=== PATIENT | male | born 1960 | race Caucasian/White ===

== ENCOUNTER 2016-06-20 19:25 | Emergency (ER) | payer SELFPAY ==
[~2016-06-20] VITALS: Ht 170.2 cm; Wt 83.6 kg
[~2016-06-20 19:25] MED LIST: BETH25TA PO; CIPR-280 PO; TAMS-1 PO
--- OUTSIDE RECORDS SUMMARY | 2016-06-20 19:29 | XMS REPORT | Referral Summary ---
Author Author [facility] Organization [facility] Address Unknown Phone Unavailable Care Team Providers Care Product Marketing Engineer Name Role Phone ChristiemeekRadha Primary Care Physician [phone] Encounter Date(s): 01/24/15 - 01/24/15 [facility] [address] [place] [address] [place] [address] Discharge Disposition: 01-Home or Self Care Attending Physician: Tony Eid JR, MD Admitting Physician: Tony Eid JR, MD Vital Signs No data available for this section Problem List Condition Effective Dates Status Health Status Informant No Chronic Problems Active Obesity(Confirmed) Active patient Allergies, Adverse Reactions, Alerts No Known Allergies Medications Flomax mg, Oral, Daily, 0 Refill(s) Start Date: 01/20/15 Status: Ordered Results No data available for this section Immunizations No data available for this section Procedures Procedure Date Related Diagnosis Body Site None Social History Social History Type Response Smoking Status Current every day smoker; Type: Cigarettes; Tobacco use per day: Pack Assessment and Plan Extracted from: Title: Catheter removal Author: Josse Sexton RN Date: 01/24/15 Patient arrived to have his indwelling catheter removed. Balloon deflated, catheter removed, standard instructions given to patient.
--- OUTSIDE RECORDS SUMMARY | 2016-06-20 19:29 | XMS REPORT | Referral Summary ---
Author Author [facility] Organization [facility] Address Unknown Phone Unavailable Care Team Providers Care Satellite Project Site Monitor Name Role Phone Radha Cunningham Primary Care Physician [phone] Encounter VC Date(s): 01/30/15 - 01/30/15 [facility] [address] [place] [address] [place], [place] [address] Discharge Diagnosis: Acute urinary retention Discharge Disposition: 01-Home or Self Care Attending Physician: Tony Eid JR, MD Admitting Physician: Tony Eid JR, MD Referring Physician: Ludin Cunningham MD Vital Signs Most recent to 1 oldest [Reference Range]: Peripheral Pulse 100 bpm Rate [60-100 bpm] (01/30/15 2:34 PM) Blood Pressure 132/80 mmHg [90-140/60-90 mmHg] (01/30/15 2:34 PM) Problem List Condition Effective Dates Status Health Status Informant No Chronic Problems Active Obesity(Confirmed) Active patient Allergies, Adverse Reactions, Alerts No Known Allergies Medications antibiotic, possibly cipro antibiotic, possibly cipro, 0 Refill(s) Start Date: 01/20/15 Status: Ordered Flomax mg, Oral, Daily, 0 Refill(s) Start Date: 01/20/15 Status: Ordered Results No data available for this section Immunizations No data available for this section Procedures Procedure Date Related Diagnosis Body Site None Social History Social History Type Response Smoking Status Current every day smoker; Type: Cigarettes; Tobacco use per day: Pack Assessment and Plan Extracted from: Title: Ambulatory Patient Education Author: Tony Eid JR, MD Date : 01/30/15 Follow Up With: Where: When: Ludin Cunningham [address] [place] [address] Business (1) Within 3 to 5 days Comments: Follow Up With: Where: When: Tony Eid [address] [place] [address] Drive; Via [facility] [place] [address] Business (1) In 2 weeks 02/13/2015 Comments: Extracted from: Title: Office Visit Note Author: Tony Eid JR, MD Date: 01/30/15 Assessment/Plan Acute urinary retention Will remove Young catheter today and start trial of voiding. Continue tamsulosin. If not able to urinate go to the emergency room so that the Young catheter will be inserted and this time leave the Young catheter for 2 weeks before removing it. This patient will subsequently need to have cystoscopyof whyhe gets this acute urinary retention. If he is able to urinate I would like to see him again in 2 weeks Ordered: Office Visit Level 3 Est [address]
--- OUTSIDE RECORDS SUMMARY | 2016-06-20 19:29 | XMS REPORT | Referral Summary ---
Author Author [facility] Organization [facility] Address Unknown Phone Unavailable Care Team Providers Care Outside Sales Professional Name Role Phone Radha Cunningham Primary Care Physician [phone] Encounter Date(s): 02/07/15 - 02/07/15 [facility] [address] [place] [address] [place] [id number] Discharge Disposition: 01-Home or Self Care Attending Physician: Tony Eid JR, MD Admitting Physician: Tony Eid JR, MD Referring Physician: Ludin Cunningham MD Vital Signs No data available for this section Problem List Condition Effective Dates Status Health Status Informant No Chronic Problems Active Obesity(Confirmed) Active patient Allergies, Adverse Reactions, Alerts No Known Allergies Medications bethanechol 25 mg oral tablet 25 mg 1 tabs, Oral, QID, X 2 weeks, # 56 tabs, 0 Refill(s), Pharmacy: [facility], 1 tabs Oral QID,x2 weeks Start Date: 01/31/15 Stop Date: 02/14/15 Status: Ordered Cipro 500 mg oral tablet 500 mg 1 tabs, Oral, q12hr, X 2 weeks, # 28 tabs, 0 Refill(s), Pharmacy: [facility], 1 tabs Oral q12hr,x2 weeks Start Date: 01/31/15 Stop Date: 02/14/15 Status: Ordered Flomax mg, Oral, Daily, 0 Refill(s) Start Date: 01/20/15 Status: Ordered Results No data available for this section Immunizations No data available for this section Procedures Procedure Date Related Diagnosis Body Site None Social History Social History Type Response Smoking Status Current every day smoker; Type: Cigarettes; Tobacco use per day: Pack Assessment and Plan Extracted from: Title: cath removal Author: Josse Sexton RN Date: 02/07/15 Patient arrived to have his indwelling catheter removed. Balloon deflated, catheter removed. Patient given instructions about returning around2:00PM today if unable to void. Pt verbalized understanding.
--- OUTSIDE RECORDS SUMMARY | 2016-06-20 19:29 | XMS REPORT | Referral Summary ---
Author Author [facility] Organization [facility] Address Unknown Phone Unavailable Care Team Providers Care Parking Lot Supervisor Name Role Phone Radha Cunningham Primary Care Physician [phone] Encounter VC Date(s): 01/30/15 - 01/30/15 [facility] [address] [place] [address] [place] [id number] Discharge Diagnosis: Acute urinary retention [...] Where: When: Ludin Cunningham [address] [place] [address] Business (1) Within 3 to 5 days Comments: Follow Up With: Where: When: Tony Eid [address] [place] [address] Drive; Via [place] [address] Business (1) In 2 weeks 02/13/2015 Comments: [...] weeks Ordered: Office Visit Level 3 Est 91328
--- OUTSIDE RECORDS SUMMARY | 2016-06-20 19:29 | XMS REPORT | Referral Summary ---
Author Author [facility] Organization [facility] Address Unknown Phone Unavailable Care Team Providers Care Head Orthopedic Team Physician Name Role Phone Radha Cunningham Primary Care Physician [phone] Encounter Date(s): 01/20/15 - 01/20/15 [facility] [address] [place] [address] [place] [id number] Discharge Diagnosis: Acute urinary retention Discharge Diagnosis: Acute urinary retention Discharge Diagnosis: Cigarette smoker Discharge Disposition: 01-Home or Self Care Attending Physician: Tony Eid JR, MD Admitting Physician: Tony Eid JR, MD Referring Physician: Tony Eid JR, MD Vital Signs Most recent to 1 oldest [Reference Range]: Peripheral Pulse 89 bpm Rate [60-100 bpm] (01/20/15 3:18 PM) Blood Pressure 126/80 mmHg [90-140/60-90 mmHg] (01/20/15 3:18 PM) Problem List Condition Effective Dates Status [...] Author: Tony Eid JR, MD Date : 01/20/15 Follow Up With: Where: When: Ludin Cunningham [address] [place] [address] Business (1) Within 3 to 5 days Comments: Follow Up With: Where: When: Tony Eid [address] [place] [address] Drive; [place] [address] Business (1) In 2 weeks 02/03/2015 Comments: Extracted from: Title: Office Visit Note Author: Tony Eid JR, MD Date: 01/20/15 Assessment/Plan 1.Acute urinary retention, Acute urinary retention we leave Young catheter until Tuesday, will not remove Young catheter by then. Continue tamsulosin and antibiotics. Ordered: Office Visit Level 4 [facility] [address] 2.Cigarette smoker patient advised to quit smoking and to talk to his family doctor with regards to help him quit smoking
--- OUTSIDE RECORDS SUMMARY | 2016-06-20 19:29 | XMS REPORT | Referral Summary ---
Author Author [facility] Organization [facility] Address Unknown Phone Unavailable Care Team Providers Care Scenario Writer Name Role Phone Radha Cunningham Primary Care Physician [phone] Encounter VC Date(s): 01/12/15 - 01/12/15 [facility] [address] [place] [address] Discharge Diagnosis: Acute UTI Final: Urinary tract infection, site not specified Discharge Disposition: 01-Home or Self Care Attending Physician: Petey Johnson MD Admitting Physician: Petey Johnson MD Vital Signs Most recent to 1 oldest [Reference Range]: Temperature Oral 36.8 degC [35.8-37.3 degC] (01/12/15 6:06 PM) Peripheral Pulse 89 bpm Rate [60-100 bpm] (01/12/15 6:06 PM) Respiratory Rate 20 br/min [14-20 br/min] (01/12/15 6:06 PM) Blood Pressure 141/88 mmHg [90-140/60-90 mmHg] *HI* (01/12/15 6:06 PM) SpO2 97 % (01/12/15 6:06 PM) Problem List Condition Effective Dates Status Health Status Informant No Chronic Problems Active Obesity(Confirmed) Active patient Allergies, Adverse Reactions, Alerts No Known Allergies Medications Flomax mg, Oral, Daily, 0 Refill(s) Start Date: 01/20/15 Status: Ordered Results Urinalysis Most recent to 1 oldest [Reference Range]: UA Color Lt Yellow (01/12/15 3:19 PM) UA Appear Clear (01/12/15 3:19 PM) UA pH [5.0-8.0] 5.0 (01/12/15 3:19 PM) UA Leuk Est Trace [Negative] *ABN* (01/12/15 3:19 PM) UA Nitrite Negative [Negative] (01/12/15 3:19 PM) UA Protein Negative [Negative] (01/12/15 3:19 PM) UA Glucose Negative [Negative] (01/12/15 3:19 PM) UA Ketones Pos 1+ [Negative] *ABN* (01/12/15 3:19 PM) UA Urobilinogen Negative [<1.0] (01/12/15 3:19 PM) UA Bili [Negative] Negative (01/12/15 3:19 PM) UA Blood [Negative] Negative (01/12/15 3:19 PM) UA Spec Grav 1.016 [1.003-1.030] (01/12/15 3:19 PM) Type Clean Catch (01/12/15 3:19 PM) UA WBC [0-4] 5-10 *ABN* (01/12/15 3:19 PM) Epithelial Cells 0-2 (01/12/15 3:19 PM) UA Bacteria Occasional *ABN* (01/12/15 3:19 PM) UA Mucous Present (01/12/15 3:19 PM) Immunizations No data available for this section Procedures Procedure Date Related Diagnosis Body Site None Social History Social History Type Response Smoking Status Current every day smoker; Type: Cigarettes; Tobacco use per day: Pack Assessment and Plan No data available for this section
--- OUTSIDE RECORDS SUMMARY | 2016-06-20 19:29 | XMS REPORT | Referral Summary ---
Author Author [facility] Organization [facility] Address Unknown Phone Unavailable Care Team Providers Care Operator Command Support Systems Name Role Phone No PCP, Pt States Primary Care Physician [phone] Encounter VC Date(s): 01/12/15 - 01/12/15 [facility] [address] [place] [address] Discharge Diagnosis: Acute UTI Discharge Disposition: 01-Home or Self Care Attending [...] 97 % (01/12/15 6:06 PM) Problem List No Known Problems Allergies, Adverse Reactions, Alerts No Known Allergies Medications Carafate 1 g oral tablet 1 tabs, Oral, QID, # 120 tabs, 0 Refill(s) Start Date: 03/18/14 Status: Ordered Macrobid 100 mg oral capsule 100 mg 1 caps, Oral, BID, X 7 days, # 14 caps, 0 Refill(s) Start Date: 01/12/15 Stop Date: 01/19/15 Status: Ordered phenazopyridine 100 mg oral tablet 100 mg 1 tabs, Oral, TID, X 3 days, # 9 tabs, 0 Refill(s) Start Date: 01/12/15 Stop Date: 01/15/15 Status: Ordered PriLOSEC 20 mg oral delayed release capsule 1 caps, Oral, Daily, before a meal, # 30 caps, 0 Refill(s) Start Date: 03/18/14 Status: Ordered Results Urinalysis Most recent to [...] No data available for this section Procedures No data available for this section Social History Social History Type Response Smoking Status Current every day smoker; Type: Cigarettes; Tobacco use per day: Pack Assessment and Plan No data available for this section
--- OUTSIDE RECORDS SUMMARY | 2016-06-20 19:29 | XMS REPORT | Referral Summary ---
Author Author [facility] Organization [facility] Address Unknown Phone Unavailable Care Team Providers Care Lidar Analyst Name Role Phone Christiemeek Radha Primary Care Physician [phone] Encounter Date(s): 01/31/15 - 01/31/15 [facility] [address] [place] [address] [place] [id number] Discharge Diagnosis: Hypotonic bladder Discharge Diagnosis: Acute urinary retention Discharge Diagnosis: Acute urinary retention Discharge Disposition: -Home or Self Care Attending Physician: Tony Eid [...] weeks, # 56 tabs, 0 Refill(s), Pharmacy: [facility], 1 tabs Oral QID,x2 weeks Start Date: 01/31/15 Stop Date: 02/14/15 Status: Ordered Cipro 500 mg oral tablet 500 mg 1 tabs, Oral, q12hr, X 2 weeks, # 28 tabs, 0 Refill(s), Pharmacy: [facility], 1 tabs Oral q12hr,x2 weeks Start [...] Author: Tony Eid JR, MD Date : 01/31/15 Follow Up With: Where: When: Ludin Cunningham [address] [place] [facility] [place] [address] Business (1) Within 3 to 5 days Comments: Follow Up With: Where: When: Tony Eid [address] [place] [address] Drive; [place] [address] Business (1) Within 3 to 5 days Comments: Extracted from: Title: Office Visit Note Author: Tony Eid JR, MD Date: 01/31/15 Assessment/Plan 1.Acute urinary retention, Acute urinary retention and number 16 Coude Young catheter was inserted. I was able to obtain a better cc of clear yellow urine. The graft the Young catheter was connected to a leg bag. Continue tamsulosin and Cipro. Ordered: Office Visit Level 4 Est 72525 2.Hypotonic bladder patient will be started on Urecholine, 4 times a day. Patient is scheduled for cystoscopy possible urethral dilatation this coming Tuesday. We'll plan to do also urethral dilatation and in will remove the Young catheter 3 or 4 days after the cystoscopy and urethral dilatation is done. Procedures, risks, complications, and follow-up explained to patient with verbalize full understanding. Orders: bethanechol, 25 mg 1 tabs, Oral, QID, X 2 weeks, # 56 tabs, 0 Refill(s ), Pharmacy: [facility], 1 tabs Oral QID,x2 weeks ciprofloxacin, 500 mg 1 tabs, Oral, q12hr, X 2 weeks, # 28 tabs, 0 Refill(s), Pharmacy: [facility], 1 tabs Oral q12hr,x2 weeks
--- OUTSIDE RECORDS SUMMARY | 2016-06-20 19:29 | XMS REPORT | Referral Summary ---
Author Author [facility] Organization [facility] Address Unknown Phone Unavailable Care Team Providers Care Director Of Labor And Delivery Name Role Phone Radha Cunningham Primary Care Physician [phone] Encounter VC Date(s): 01/31/15 - 01/31/15 [facility] [address] [place] [address] [place] [id number] Discharge Diagnosis: Hypotonic bladder Discharge Diagnosis: Acute [...] Procedures Procedure Date Related Diagnosis Body Site Insertion of temporary indwelling bladder 01/31/15 catheter; complicated (eg, altered anatomy, fractured catheter/balloon) None Social History Social History Type Response Smoking Status Current every day smoker; Type: Cigarettes; Tobacco use per day: Pack Assessment and Plan Extracted from: Title: Ambulatory Patient Education Author: Tony Eid JR, MD Date : 01/31/15 Follow Up With: Where: When: Ludin Cunningham [address] [place] [address] Business (3) Within 3 to 5 days Comments: Follow Up With: Where: When: Tony Eid [address] [place] [address] Drive; Via [facility] [place] [address] Business (1) Within 3 to 5 days [...] Cipro. Ordered: Office Visit Level 4 Est [address] 2.Hypotonic bladder patient will be started on [...] # 56 tabs, 0 Refill(s ), Pharmacy: [facility], 1 tabs Oral QID,x2 weeks ciprofloxacin, 500 mg 1 tabs, Oral, q12hr, X 2 weeks, # 28 tabs, 0 Refill(s), Pharmacy: [facility], 1 tabs Oral q12hr,x2 weeks
--- OUTSIDE RECORDS SUMMARY | 2016-06-20 19:29 | XMS REPORT | Referral Summary ---
Author Author [facility] Organization [facility] Address Unknown Phone Unavailable Care Team Providers Care Torts Law Professor Name Role Phone Marisa Radha Primary Care Physician [phone] Encounter Date(s): 01/24/15 - 01/24/15 [facility] [address] [place] [address] [place] [address] Discharge Disposition: 01-Home or Self Care Attending Physician: Tony Eid JR, MD Admitting Physician: Tony Eid JR, MD Vital Signs No data available for this section Problem List Condition Effective Dates Status Health Status Informant No Chronic Problems Active Obesity(Confirmed) Active patient Allergies, Adverse Reactions, Alerts No Known Allergies Medications antibiotic, possibly cipro antibiotic, possibly cipro, 0 Refill(s) Start Date: 01/20/15 Status: Ordered Carafate 1 g oral tablet 1 tabs, Oral, QID, # 120 tabs, 0 Refill(s) Start Date: 03/18/14 Status: Ordered Flomax mg, Oral, Daily, 0 Refill(s) Start Date: 01/20/15 Status: Ordered PriLOSEC 20 mg oral delayed release capsule 1 caps, Oral, Daily, before a meal, # 30 caps, 0 Refill(s) Start Date: 03/18/14 Status: Ordered Results No data available for [...]
--- OUTSIDE RECORDS SUMMARY | 2016-06-20 19:29 | XMS REPORT | Continuity of Care Document ---
Author Author [facility] Organization [facility] Address Unknown Phone Unavailable Allergies Active Description Code Type Severity Reaction Onset Reported/Identified Relationship to Patient Clinical Status Yes No Known Allergies NKMA N/A N/A 03/18/2014 Yes No Known Allergies NKMA N/A N/A 03/18/2014 Medications Problems Date Dx Coded Attending Type Code Diagnosis Diagnosed By 03/19/2014 Saeed Arenas DO Reason 786.50 UNSPECIFIED CHEST PAIN 01/21/2015 Final N39.0 Urinary tract infection, site not specified 01/21/2015 Reason R10.12 Left upper quadrant pain 01/21/2015 Reason R10.30 Lower abdominal pain, unspecified Procedures Results Encounters ACCT No. Visit Date/Time Discharge Status Pt. Type Provider Facility Loc./Unit Complaint [id number] 03/18/2014 18:34:00 2013 22:52:00 DIS Emergency Saeed Arenas DO [facility] ED cp [id number] 01/12/2015 15:04:00 Document Registration
--- OUTSIDE RECORDS SUMMARY | 2016-06-20 19:29 | XMS REPORT | Referral Summary ---
Author Author [facility] Organization [facility] Address Unknown Phone Unavailable Care Team Providers Care Applications Sales Representative Name Role Phone Radha Cunningham Primary Care Physician [phone] Encounter [facility] [id number] Date(s): 01/20/15 - 01/20/15 [facility] [address] [place] [address] [place] [address] Discharge Diagnosis: Acute urinary retention Discharge Diagnosis: [...] 01/20/15 Follow Up With: Where: When: Ludin Marisa [address] [place] [address] Business (1) Within 3 to 5 days Comments: Follow Up With: Where: When: Tony Eid [address] [place] [address] Drive; [place] [address] Business (1) In 2 weeks 02/03/2015 Comments: Extracted from: Title: Office Visit Note Author: Tony Eid JR, MD Date: 01/20/15 Assessment/Plan 1.Acute urinary retention, Acute urinary retention we leave Young catheter until Tuesday, will not remove Young catheter by then. Continue tamsulosin and antibiotics. Ordered: Office Visit Level 4 [place] [address] 2.Cigarette smoker patient advised to quit smoking and to talk to his family doctor with regards to help him quit smoking
[2016-06-20 19:36] VITALS: Ht 170.2 cm; Wt 83.6 kg
[2016-06-20] MEDS ORDERED: TAMSULOSIN 0.4 MG CAPSULE PO ONE (20:00)
[2016-06-20 20:04] LABS: BLOOD, URINE 1+ (NEGATIVE); COLOR,URINE YELLOW (YELLOW); LEUKOCYTE ESTERASE ,URINE NEGATIVE (NEGATIVE); NITRITE,URINE NEGATIVE (NEGATIVE); UROBILINOGEN,URINE 0.2 EU/DL (NORMAL)
--- NOTE | 2016-06-20 20:04 | ERPDOC ---
Departure Disposition Decision Date: Jun 20, 2016 Disposition Decision Time: 20:12 Disposition: 01 DISCHARGED HOME, SELF-CARE Impression Impression Impression: Primary Impression: Urinary retention Severity: Moderate Condition: Stable Seen By: Mid-level only Referrals: Samia CUNNINGHAM MD (Family) Patient Instructions: Urinary Retention in Men (ED) Problems/Meds/Labs Reviewed?: Yes Medications reviewed and manag: Yes Additional Instructions: Take the Flomax as prescribed. I do want you to call and schedule an appointment with Dr Cunningham this week or Dr Epps or urologist of your choice. Dr Epps's office number is [phone]. Dr Cunningham or the urologist can take out your boswell catheter and talk about further interventions to prevent the retention from happening again. If any other issues/concerns then return to Er. Follow up care ordered?: Yes Mental Status: Alert, Oriented Scripts Tamsulosin HCl (Flomax) 0.4 Mg Capsule 0.4 MG PO HS, #14 CAP 0 Refills Take 1 capsule, by mouth, one time a day at BEDTIME. Prov: STERLING PATINOChel Wiggins APRN 06/20/16 HPI - Male General Chief Complaint: Male Urogenital Problems Stated Complaint: UNABLE TO URINATE Time Seen by Provider: 19:51 Source: patient Exam Limitations: no limitations HPI - Male Initial Comments He has had trouble with urination since last evening. Has only been able to void a small amount at a time. Tonight was feeling very uncomfortable so came into Er. Bladder scan does show about 1000ml in the bladder. He has had this same thing happen about a year and a half ago. Had seen Dr Eid for this and had a procedure that he was told would fix it. Had been taking Flomax but the Rx ran out and he did not get it refilled. Denies any fever or chills. Occurred At: home Onset: Gradual Duration: 12-24 hrs Severity/Quality: fullness Location: unknown Radiation: none Prior Genitourinary Problems: none Associated Symptoms: abdominal pain (low abdominal pressure), DENIES: diaphoresis, dysuria, fever/chills, loss of bladder control, lower back pain, lumps, mass, nausea/vomiting, nocturia, polyuria, swelling, syncope, urinary frequency Allergies: Coded Allergies: No Known Allergies (Unverified , 06/20/16) Past History Past Medical History Pt denies signifigant PMH Male: other Surgical History Denies Surgeries Family History Family History: Negative Vaccines Hx Influenza Vaccination: No Hx Pneumococcal Vaccination: No Social History Smoking Status: Never smoker Substance Use Type: does not use Alcohol Intake: none Review of Systems Constitutional Constitutional: DENIES: chills, dizziness, fatigue, fever, weakness GI Upper Abdomen: DENIES: nausea, pain, vomiting Lower Abdomen: DENIES: constipation, diarrhea, pain Integumentary Skin: DENIES: rash Neurological General: DENIES: headache, numbness, tingling, weakness Physical Exam General General Nourishment: well nourished, well developed, appears stated age, no acute distress, adult General Body Habitus: well groomed Vitals and Pain First Documented Vital Signs Date Time Temp Pulse Resp B/P Pulse Ox O2 Delivery O2 Flow Rate FiO2 06/20/16 19:36 98.8 95 19 150/97 95 Room Air Weight: Kilograms: 83.600 Height (feet): 5 Height (inches): 7.00 Triage Pain Scale: RN VS reviewed by Provider: Yes Normal Exams: Neck: Full range of motion, without adenopathy, JVD, bruits or thyromegaly Chest/Resp: Clear all rey, with good airflow, and symmetry bilaterally CV: Regular rate and rhythm, without murmur or gallop, Pulses 2+ all extremities, capillary refill, <2 seconds all ext., no pedal edema noted Abdomen: Bowel sounds positive, soft, non-tender, non-distended, no hepatosplenomegaly, masses or bruits noted Lymphatic: No lymphadenopathy, or lymphedema noted Integumentary: No rashes, hives, or bruising noted Neurologic: Patient is alert, and oriented Psychiatric: Patient exhibits, appropriate attention, emotion and affect Differential Diagnoses Considering: Pyelonephritis, Urinary Retention, UTI Progress Results/Orders Orders Procedure Category Date Status Time Boswell (Ed) EDM 06/20/16 Transmitted 19:47 Catheter Needs TEJINDER 06/20/16 In Process Assessment 19:47 Bladder Scanner (Ed) EDM 06/20/16 Transmitted 19:47 Tamsulosin (Flomax PHA 06/20/16 Complete 0.4 Mg) 20:00 Ua, Dip Wreflex LAB 06/20/16 Logged [employer] Director 19:59 Boswell (Ed) EDM 06/20/16 Transmitted 19:59 Bladder Scanner (Ed) EDM 06/20/16 Transmitted 19:59 UA, LAB 06/20/16 Complete Dip&Micro(Complete) & 20:00 Case Management CONS 06/20/16 Transmitted Consult Lab Results Laboratory Tests Test 06/20/16 20:00 Urine Collection Type Cleancatch-midstream Urine Color Yellow Urine Turbidity Clear Urine pH 6.0 Urine Specific [place] 1.015 Urine Protein Negative Urine Glucose (UA) Negative Urine Ketones Negative Urine Blood 1+ Urine Nitrite Negative Urine Bilirubin Negative Urine Urobilinogen 0.2EU/DL Urine Leukocyte Esterase Negative Urine RBC 3-5/HPF Urine WBC None seen/HPF Urine Squamous Epithelial Cells None seen Urine Bacteria None seen Urine Culture Indicated Cult not indicated Medications Current ED Medications Tamsulosin HCl (FLOMAX 0.4 mg) 0.4 mg O ONCE PO Last administered on t 20:09; Start 06/20/16 at 20:00; Stop 06/20/16 at 20:01; Status DC Progress Progress Boswell catheter placed and over 1 liter of urine out. UA is clear of infection. Will send him home with boswell catheter. Did advise that he follow up with a urologist. He does not have health insurance and is going to try to get set up with urology this week or possibly Dr Cunningham his PCP. Will go ahead and have him start on Flomax. Has been on this in the past but ran out if his Rx. RAGINI PATINO APRN Jun 20, 2016 20:03
[2016-06-20] MEDS ORDERED: BETA PROSTATE PO (20:05)
[2016-06-20 20:13] LABS: WBC,URINE NONE SEEN /HPF (0-5)
[2016-06-20 20:14] LABS: BACTERIA,URINE NONE SEEN (NEGATIVE); SQUAMOUS EPITHELIAL CELL,UR NONE SEEN
[2016-06-20] MEDS ORDERED: TAMS-1 PO (20:24)
[2016-06-20 20:25] VITALS: BP 126/90; PULSE 85; RESP 16; TEMP 98.8; O2SAT 95
--- NOTE | 2016-06-20 20:30 | NUR ---
CATHETER EDUCATION EDUCATED PT REGARDING LEG BAG VERSES 1LITER DRAINAGE BAG AND RATIONAL FOR EACH USE. EDUCATED PT AND REGARDING ASEPTIC TECHNIQUE FOR CHANGING BAGS. ADDITIONALLY, EDUCATED REGARDING HYGIENE AND CATHETER CARE. NOTED THAT PT'S URINE MORE PINK TINGEDS THIS RN WAS IN THE ROOM. INSTRUCTED REGARDING OBSERVING FOR CLOTS AND MONITORING FOR ADEQUATE EMPTYING. PT AND VERBALIZED UNDERSTANDING.
--- OUTSIDE RECORDS SUMMARY | 2016-06-20 20:48 | XMS REPORT | Continuity of Care Document ---
Author Author [facility] Organization [facility] Address Unknown Phone Unavailable Allergies Active [...] Status Pt. Type Provider Facility Loc./Unit Complaint [id number] 03/18/2014 18:34:00 2013 22:52:00 DIS Emergency Saeed Arenas DO [facility] ED cp [id number] 01/12/2015 15:04:00 Document Registration
--- NOTE | 2016-06-25 15:08 | NUR ---
ED FOLLOW UP THIS WORKER SPOKE TO PT ON THIS DATE. PT REPORTED THAT HE WAS ABLE TO SEE A UROLOGIST ON 06/23/16. PT REPORTED THAT HE WAS SCHEDULED AGAIN ON 06/30/16. PT REPORTED THAT HE HAD TO PAY 280 DOLLARS UP FRONT FOR THESE APPOINTMENTS. PT REPORTED THAT HE WOULD NOT BE ABLE TO AFFORD 280 FOR EVERY VISIT. THIS WORKER EXPLAINED THAT IF PT WAS UNABLE TO MAKE THESE APPOINTMENTS DUE TO COST THEN TO CONTACT THIS WORKER SO THAT OTHER ARRANGEMENTS COULD BE MADE. PT WAS APPRECIATIVE OF THIS AND TOOK THIS WORKER'S CONTACT INFORMATION. Addendum: 06/25/16 at 1513 by ALCIRA ESPINOZA Amended: Links added.
== END 2016-06-20 20:42 | disposition home or self-care (01) ==
LOC: ED 19:25
DX: R33.9 Retention of urine, unspecified (principal)
CPT/HCPCS: 51702; 81001